=== PATIENT | male | born 1990 | race Caucasian/White ===

== ENCOUNTER 2022-04-01 12:11 | Emergency (ER) | payer OTHER ==
[2022-04-01 13:03] LABS: BASOPHIL % 0.4 % (0.0-0.4); Basophil (Absolute #) 0.02 x10^3/uL (0-0.4); Eosinophil % 0.4 % (0.00-5.0); Eosinophil (Absolute #) 0.02 x10^3/uL (0-0.5); Hematocrit 43.7 % (42-50); Hemoglobin 14.8 g/dL (12.5-18.0); IMMATURE GRAN # 0.01 x10^3u/L (0.00-0.03); IMMATURE GRAN % 0.2 % (0.00-0.4); Lymphocyte (Absolute #) 1.36 x10^3/uL (1.0-4.6); Lymphocytes % 28.8 % (24.0-44.0); Mean Corpuscular Hemoglobin 29.1 pg (26-32); Mean Corpuscular Hgb Concent. 33.9 g/dL (32-36); Mean Platelet Volume 11.1 fL (7.5-11.0); Monocyte (Absolute #) 0.32 x10^3/uL (0.0-1.3); Monocytes % 6.8 % (0.0-12.0); Neutrophil % 63.4 % (36.0-66.0); Platelet Count 236 x10^3/uL (150-450); Red Blood Count 5.08 x10^6/uL (4.1-5.6); White Blood Count 4.7 x10^3/uL (4.0-10.5)
[2022-04-01 13:16] LABS: ANION GAP 13.3 MEQ/L (5-15); BLOOD UREA NITROGEN 21 mg/dL (9-20); CHLORIDE 104 mmol/L (98-107); Calcium 9.1 mg/dL (8.4-10.2); Carbon Dioxide 27 mmol/L (22-30); Creatinine 1 0.85 mg/dL (0.66-1.25); EST GLOMERULAR FILTRATION RATE > 60.0 ML/MIN; Glucose 105 mg/dL (74-106); Potassium 3.6 mmol/L (3.5-5.1); SODIUM 140 mmol/L (137-145)
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
[2022-04-01 14:22] VITALS: BP 150/80; PULSE 60
[2022-04-01 15:01] VITALS: O2SAT 98
== END 2022-04-01 14:28 | disposition home or self-care (01) ==
LOC: ED 12:11
DX: S06.0X0A Concussion without loss of consciousness, initial encounter (principal); S20.211A Contusion of right front wall of thorax, initial encounter; V86.65XA Passenger of 3- or 4- wheeled all-terrain vehicle (ATV) injured in nontraffic accident, initial encounter; R07.81 Pleurodynia; Z72.0 Tobacco use
CPT/HCPCS: 36000; 36415; 71260; 74177; 80048; 85025; 99283